=== PATIENT | male | born 1935 | race Caucasian/White ===

== ENCOUNTER 2017-09-23 14:58 | Emergency (ER) | payer MEDICARE ==
[~2017-09-23] VITALS: Ht 175.3 cm; Wt 89.8 kg
[2017-09-23] MEDS ORDERED: OMEP20CA10 PO (15:24)
[2017-09-23] MEDS ORDERED: ALBU8.5H8 IH (15:24)
[2017-09-23] MEDS ORDERED: PEG31POW2 PO (15:24)
[2017-09-23] MEDS ORDERED: CHOL100043 PO (15:24)
[2017-09-23] MEDS ORDERED: CLOP75TA33 PO (15:24)
[2017-09-23] MEDS ORDERED: ASPI81TA31 PO (15:24)
[2017-09-23] MEDS ORDERED: TAMS0.4C34 PO (15:24)
[2017-09-23] MEDS ORDERED: FOLI1TAB16 PO (15:24)
[2017-09-23] MEDS ORDERED: EZET10TA13 PO (15:24)
[2017-09-23] MEDS ORDERED: RANI300T4 PO (15:24)
[2017-09-23] MEDS ORDERED: FENO134C PO (15:24)
[2017-09-23] MEDS ORDERED: GLIP5TAB3 PO (15:24)
[2017-09-23] MEDS ORDERED: ERGO500014 PO (15:24)
[2017-09-23] MEDS ORDERED: ROSU40TA20 PO (15:24)
[2017-09-23] MEDS ORDERED: FLUT1BLS IH (15:24)
[2017-09-23] MEDS ORDERED: FINA5TAB11 PO (15:24)
[2017-09-23] MEDS ORDERED: VALS80TA2 PO (15:24)
[2017-09-23] MEDS ORDERED: METF850T2 PO (15:24)
[2017-09-23] MEDS ORDERED: PRED-170 PO (15:24)
[2017-09-23] MEDS ORDERED: MORPHINE SULFATE 2 MG/1 ML DISP.SYRIN IV ONE (17:15)
[2017-09-23] MEDS ORDERED: ONDANSETRON 4 MG/2 ML VIAL IV ONE ×2 (17:15→18:15)
[2017-09-23] MEDS ORDERED: PANTOPRAZOLE SODIUM 40 MG VIAL IV ONE (17:15)
[2017-09-23 17:37] LABS: BASOPHILS % (AUTO) 0.3 % (0.0-2.0); HEMATOCRIT 40.3 % (36.7-47.1); HEMOGLOBIN 13.5 g/dL (12.5-16.3); LYMPHOCYTES # (AUTO) 0.7 K/uL (20.0-40.0); LYMPHOCYTES % (AUTO) 7.6 % (20.5-51.5); MEAN CORPUSCULAR HEMOGLOBIN 29.8 uug (23.8-33.4); MEAN CORPUSCULAR HGB CONC 34 g/dL (32.5-36.3); MONOCYTES # (AUTO) 0.5 K/uL (2.0-10.0); MONOCYTES % (AUTO) 5.2 % (0.0-11.0); NEUTROPHILS # (AUTO) 7.8 K/uL (1.8-8.9); NEUTROPHILS % (AUTO) 86.9 % (38.5-71.5); PLATELET COUNT (AUTO) 232 K/uL (152-348); RED BLOOD CELL COUNT(AUTO) 4.53 MIL/uL (4.06-5.63)
[2017-09-23 17:38] LABS: CARBON DIOXIDE 25 mmol/L (21-32); CHLORIDE 101 mmol/L (98-107); CREATININE 1.5 mg/dL (0.6-1.3); GLUCOSE 190 mg/dL (74-106); POTASSIUM 5.3 mmol/L (3.5-5.1); UREA NITROGEN, BLOOD 26 mg/dL (7-18)
[2017-09-23 17:45] LABS: ALANINE AMINOTRANSFERASE 45 U/L (16-63); ALKALINE PHOSPHATASE 74 U/L (50-136); ASPARTATE AMINOTRANSFERASE 20 U/L (15-37); BILIRUBIN,DIRECT 0.1 mg/dL (0.0-0.2); BILIRUBIN,TOTAL 0.5 mg/dL (0.2-1.0); LIPASE 69 U/L (73-393); TOTAL PROTEIN, SERUM 7.2 g/dL (6.4-8.2)
[2017-09-23] MEDS ORDERED: ONDANSETRON 4 MG/2 ML VIAL ONE (18:36)
[2017-09-23] MEDS ORDERED: PANTOPRAZOLE SODIUM 40 MG VIAL ONE (18:36)
[2017-09-23] MEDS ORDERED: MORPHINE SULFATE 2 MG/1 ML DISP.SYRIN ONE (18:37)
[2017-09-23] MEDS ORDERED: IV NORMAL SALINE 1000 ML BAG IV ONE (20:15)
[2017-09-23 20:56] LABS: *BILIRUBIN,URIN NEGATIVE (NEGATIVE); *BLOOD, URINE 3+ (NEGATIVE); *CLARITY,URINE SLIGHTLY CLOUDY (CLEAR); *COLOR,URINE YELLOW (YELLOW); *KETONES,URINE NEGATIVE (NEGATIVE); *PROTEIN,URINE TRACE (NEGATIVE); *UROBILINOGEN,URINE 0.2 E.U./dl (NORMAL); LEUKOCYTE ESTERASE ,URINE NEGATIVE (NEGATIVE); NITRITE, URINE NEGATIVE (NEGATIVE); UGLUCOSE NEGATIVE (NEGATIVE)
[2017-09-23] MEDS ORDERED: ONDANSETRON 4 MG/2 ML VIAL IV PRN (21:00)
[2017-09-23] MEDS ORDERED: MORPHINE SULFATE 2 MG/1 ML DISP.SYRIN IV PRN (21:00)
[2017-09-23] MEDS ORDERED: ACETAMINOPHEN 325 MG TABLET PO PRN (21:00)
[2017-09-23] MEDS ORDERED: MIRALAX 17 GM POWD.PACK PO ONE (21:00)
[2017-09-23 21:06] LABS: BACTERIA,URINE NONE SEEN /HPF (NONE SEEN); RBC,URINE 80-100 /HPF (0-3); SQUAMOUS EPITHELIAL CELL,UR NONE SEEN /HPF (NONE SEEN); WBC,URINE 0-3 /HPF (0-3)
[2017-09-23] MEDS ORDERED: IV NORMAL SALINE 100 ML BAG IV SCH (21:15)
[2017-09-23] MEDS ORDERED: MIRALAX 17 GM POWD.PACK ONE (21:49)
--- NOTE | 2017-09-23 21:57 | NUR ---
Patient discharged to home in stable conditon. Written and verbal after care instructions given. Patient verbalizes understanding of instructions.
[2017-09-24] MEDS ORDERED: FINASTERIDE 5 MG TABLET PO SCH (09:00)
[2017-09-24] MEDS ORDERED: FLUTICASONE/VILANTEROL 1 EACH BLST.W.DEV IH SCH (09:00)
[2017-09-24] MEDS ORDERED: Medication Not On Formulary EA (Rosuvastatin Calcium 40 MG) PO SCH (09:00)
[2017-09-24] MEDS ORDERED: ASPIRIN 81 MG TAB.CHEW PO SCH (09:00)
[2017-09-24] MEDS ORDERED: TAMSULOSIN HCL 0.4 MG CAP.SR.24H PO SCH (09:00)
== END 2017-09-23 21:59 | disposition home or self-care (01) ==
LOC: ER 14:58
DX: R10.30 Lower abdominal pain, unspecified (principal); K40.90 Unilateral inguinal hernia, without obstruction or gangrene, not specified as recurrent; E11.9 Type 2 diabetes mellitus without complications; K80.20 Calculus of gallbladder without cholecystitis without obstruction; N40.0 Benign prostatic hyperplasia without lower urinary tract symptoms; N13.2 Hydronephrosis with renal and ureteral calculous obstruction; Z79.82 Long term (current) use of aspirin; Z90.49 Acquired absence of other specified parts of digestive tract; E78.5 Hyperlipidemia, unspecified
CPT/HCPCS: 36415; 70030-TC; 71010; 83690; 85025; 85730; 87086; 93005; A4663; C9113; J2270; J2405; J7030